=== PATIENT | female | born 1965 | race American Indian/Alaskan Native ===

== ENCOUNTER 2017-07-28 09:08 | Emergency (ER) | payer MEDICARE, MEDICAID ==
[2017-07-28 09:31] VITALS: PULSE 79; RESP 16; TEMP 98.1
[2017-07-28 09:57] VITALS: BP 122/70; O2SAT 98
--- NOTE | 2017-07-28 10:40 | ED PDOC ---
HPI: CCC, URI, Sore Throat Time Seen by Provider: 07/28/17 09:37 Chief Complaint (Nursing): Cough, Cold, Congestion Chief Complaint (Provider): Cough History Per: Patient Additional Complaint(s): Pt presents to ED with multiple somatic complaints; however, upon writers arrival, Pt reports she has a court date at noon and she needs to get there and has to leave the ER right now. Pt reports she will be back later Past Medical History Reviewed: Historical Data Vital Signs: Last Vital Signs Temp 98.1 F 07/28/17 09:48 Pulse 79 07/28/17 09:30 Resp 16 07/28/17 09:30 BP 122/70 07/28/17 09:48 Pulse Ox 98 07/28/17 09:48 - Medical History PMH: HTN, Hyperlipidemia, Schizophrenia Denies: HIV, Seizures, Sexually Transmitted Disease - Family History Family History: States: Unknown Family Hx - Immunization History Hx Tetanus Toxoid Vaccination: No Hx Influenza Vaccination: Yes (03/2017) Hx Pneumococcal Vaccination: No - Home Medications Home Medications: Ambulatory Orders Medication Instructions Recorded Paroxetine HCl [Paxil] 20 mg PO DAILY 08/27/15 Risperidone [Risperdal] 3 mg PO HS 08/27/15 Hydrocortisone Anastasiia 0.2% Cr 1 ea TP BID PRN #1 tube 06/17/17 [Westcort] Lisinopril 06/17/17 Pravastatin Sodium 06/17/17 metFORMIN [glucOPHAGE] 500 mg PO 06/17/17 - Allergies Allergies/Adverse Reactions: Allergies Allergy/AdvReac Type Severity Reaction Status Date / Time tomato Allergy Severe RASH Verified 06/17/17 16:28 amoxicillin AdvReac Severe PAIN Verified 06/17/17 16:28 Review of Systems Review Of Systems: ROS cannot be obtained secondary to pt's inabilty to answer questions. - ECG O2 Sat by Pulse Oximetry: 98 Medical Decision Making Medical Decision Making: Pt left before evaluation and treatment complete Disposition - Clinical Impression Clinical Impression: Viral syndrome - Disposition Disposition: Eloped Disposition Time: 10:43 Condition: STABLE
== END 2017-07-28 10:15 | disposition left against medical advice (07) ==
LOC: H.ER 09:08
DX: B34.9 Viral infection, unspecified (principal); E78.5 Hyperlipidemia, unspecified; F20.9 Schizophrenia, unspecified; I10 Essential (primary) hypertension; Z79.84 Long term (current) use of oral hypoglycemic drugs; Z88.0 Allergy status to penicillin

== ENCOUNTER 2017-07-28 14:29 | Emergency (ER) | payer MEDICARE, MEDICAID ==
[2017-07-28 14:44] VITALS: RESP 18
--- NOTE | 2017-07-28 15:27 | ED PDOC ---
HPI: General Adult Time Seen by Provider: 07/28/17 14:35 Chief Complaint (Nursing): Flu-like Symptoms Chief Complaint (Provider): multiple complainta History Per: Patient Additional Complaint(s): 52 yo female, multiple somatic complaints, pt c/o headache, bodyaches, cough and congestion for 2 days. Also reports bumps on scalp, vaginal discharge Past Medical History Reviewed: Historical Data, Nursing Documentation, Vital Signs Vital Signs: Last Vital Signs Temp 97.8 F 07/28/17 17:12 Pulse 75 07/28/17 17:12 Resp 18 07/28/17 17:12 BP 150/90 07/28/17 17:12 Pulse Ox 100 07/28/17 17:12 - Medical History PMH: HTN, Hyperlipidemia, Schizophrenia Denies: HIV, Seizures, Sexually Transmitted Disease - Family History Family History: States: Unknown Family Hx - Living Arrangements Living Arrangements: Other - Social History Current smoker - smoking cessation education provided: No Alcohol: None Drugs: Denies - Immunization History Hx Tetanus Toxoid Vaccination: No Hx Influenza Vaccination: Yes (03/2017) Hx Pneumococcal Vaccination: No - Home Medications Home Medications: Ambulatory Orders Medication Instructions Recorded Paroxetine HCl [Paxil] 20 mg PO DAILY 08/27/15 Risperidone [Risperdal] 3 mg PO HS 08/27/15 Hydrocortisone Anastasiia 0.2% Cr 1 ea TP BID PRN #1 tube 06/17/17 [Westcort] Lisinopril 06/17/17 Pravastatin Sodium 06/17/17 metFORMIN [glucOPHAGE] 500 mg PO 06/17/17 DiphenhydrAMINE [Benadryl] 50 mg PO Q4 PRN #30 cap 07/28/17 Hydrocortisone 1% Cream [Cortizone 1 dap TOP BID #1 tube 07/28/17 1% Cream] Ibuprofen [Motrin] 600 mg PO Q6 #20 tab 07/28/17 - Allergies Allergies/Adverse Reactions: Allergies Allergy/AdvReac Type Severity Reaction Status Date / Time tomato Allergy Severe RASH Verified 06/17/17 16:28 amoxicillin AdvReac Severe PAIN Verified 07/28/17 14:41 Review of Systems ROS Statement: Except As Marked, All Systems Reviewed And Found Negative Skin: Positive for: Lesions (on scalp) Neurological: Positive for: Headache Physical Exam - Reviewed Nursing Documentation Reviewed: Yes Vital Signs Reviewed: Yes - Physical Exam Appears: Positive for: Well, Non-toxic, No Acute Distress Head Exam: Positive for: ATRAUMATIC, NORMAL INSPECTION, NORMOCEPHALIC Skin: Positive for: Normal Color, Warm, DRY Eye Exam: Positive for: EOMI, Normal appearance, PERRL ENT: Positive for: Normal ENT Inspection Neck: Positive for: Normal, Painless ROM Cardiovascular/Chest: Positive for: Regular Rate, Rhythm Respiratory: Positive for: CNT, Normal Breath Sounds Gastrointestinal/Abdominal: Positive for: Normal Exam, Bowel Sounds, Soft Pelvic Exam: Positive for: External Exam Normal. Negative for: No Masses, Active Bleeding, Discharge, Lesions, Mass Back: Positive for: Normal Inspection Extremity: Positive for: Normal ROM Neurologic/Psych: Positive for: Alert, Oriented - Laboratory Results Result Diagrams: 07/28/17 16:14 07/28/17 16:14 - ECG O2 Sat by Pulse Oximetry: 97 Medical Decision Making Medical Decision Making: Pt educated on lab results and normal physical exam findings advised GC/C cultures obtianed and sent, will recieve call back if anything results (+) Pt deep shea unprotected sex in recent history, not treated at this time Disposition - Clinical Impression Clinical Impression: Viral syndrome - Patient ED Disposition Is Patient to be Admitted: No - Disposition Disposition: Routine/Home Disposition Time: 17:00 Condition: STABLE Prescriptions: DiphenhydrAMINE [Benadryl] 50 mg PO Q4 PRN #30 cap PRN Reason: Rash Hydrocortisone 1% Cream [Cortizone 1% Cream] 1 dap TOP BID #1 tube Ibuprofen [Motrin] 600 mg PO Q6 #20 tab Instructions: Viral Syndrome (DC) Forms: [employer] (Maltese)
[2017-07-28] MEDS ORDERED: Sodium Chloride 0.9% 1,000 ML IV STA (15:36)
--- NOTE | 2017-07-28 15:59 | RAD ---
HISTORY: cough COMPARISON: No prior. TECHNIQUE: Chest PA and lateral FINDINGS: LUNGS: No active pulmonary disease. PLEURA: No significant pleural effusion identified. No pneumothorax apparent. CARDIOVASCULAR: Normal. OSSEOUS STRUCTURES: No significant abnormalities. VISUALIZED UPPER ABDOMEN: Normal. OTHER FINDINGS: None. IMPRESSION: No active disease.
[2017-07-28 16:17] LABS: SQUAMOUS EPITHIAL 1 /hpf (0-5); URINE BACTERIA RARE (<OCC); URINE BILIRUBIN NEGATIVE (NEGATIVE); URINE BLOOD NEGATIVE (NEGATIVE); URINE CLARITY CLEAR (Clear); URINE COLOR YELLOW (YELLOW); URINE GLUCOSE (UA) >=500 mg/dL (Normal); URINE LEUKOCYTE ESTERASE NEG Leu/uL (Negative); URINE NITRATE NEGATIVE (NEGATIVE); URINE PROTEIN NEGATIVE (NEGATIVE); URINE UROBILINOGEN 0.2-1.0 mg/dL (0.2-1.0)
[2017-07-28 16:22] LABS: BASO % 0.5 % (0.0-2.0); EOS # 0.1 K/uL (0.0-0.7); EOS % 1.6 % (0.0-4.0); HEMOGLOBIN 12.5 g/dL (12.0-16.0); LYMPH # 1.9 K/uL (1.0-4.3); LYMPH % 36.3 % (20.0-40.0); MEAN CELL VOLUME 92.2 fl (81.0-99.0); MEAN CORPUSCULAR HEMOGLOBIN 30.6 pg (27.0-31.0); MEAN CORPUSCULAR HGB CONC 33.2 g/dL (33.0-37.0); MEAN PLATELET VOLUME 9.6 fl (7.2-11.7); MONO # 0.3 K/uL (0.0-0.8); MONO % 5.4 % (0.0-10.0); NEUT % 56.2 % (50.0-75.0); NRBC % 0.3 % (0.0-0.0); RBC 4.07 Mil/uL (3.80-5.20); WHITE BLOOD COUNT 5.3 K/uL (4.8-10.8)
[2017-07-28 16:34] LABS: ALB/GLOB RATIO 1.3 (1.0-2.1); ALBUMIN 3.7 g/dL (3.5-5.0); ALT/SGPT 32 U/L (9-52); AST/SGOT 19 U/L (14-36); BLOOD UREA NITROGEN 22 mg/dl (7-17); CALCIUM 9.1 mg/dL (8.4-10.2); GFR AFRICAN-AMERICAN > 60; GFR NON-AFRICAN AMERICAN > 60
[2017-07-28 17:13] VITALS: BP 150/90; PULSE 75; TEMP 97.8
[2017-07-30 11:32] VITALS: O2SAT 97
== END 2017-07-28 17:48 | disposition home or self-care (01) ==
LOC: H.ER 14:29
DX: B34.9 Viral infection, unspecified (principal); E78.5 Hyperlipidemia, unspecified; F20.9 Schizophrenia, unspecified; I10 Essential (primary) hypertension; N89.8 Other specified noninflammatory disorders of vagina; Z79.84 Long term (current) use of oral hypoglycemic drugs; Z88.0 Allergy status to penicillin
CPT/HCPCS: 71046; 80053; 81003; 81025; 85025; 86631; 86632; 99283; J7040

== ENCOUNTER 2017-12-27 11:32 | Emergency (ER) | payer MEDICARE, MEDICAID ==
[2017-12-27 11:33] VITALS: BMI 24.2
[2017-12-27 11:45] VITALS: RESP 16; TEMP 98.1
[2017-12-27 13:36] LABS: SQUAMOUS EPITHIAL < 1 /hpf (0-5); URINE BILIRUBIN NEGATIVE (NEGATIVE); URINE BLOOD NEGATIVE (NEGATIVE); URINE CLARITY CLEAR (Clear); URINE COLOR YELLOW (YELLOW); URINE GLUCOSE (UA) >=500 mg/dL (Normal); URINE LEUKOCYTE ESTERASE NEG Leu/uL (Negative); URINE PROTEIN 30 mg/dL (NEGATIVE); URINE UROBILINOGEN 0.2-1.0 mg/dL (0.2-1.0)
--- NOTE | 2017-12-27 13:36 | ED PDOC ---
HPI: Psych/Substance Abuse Time Seen by Provider: 12/27/17 12:01 Chief Complaint (Nursing): Abnormal Skin Integrity Chief Complaint (Provider): Pruritic Rash History Per: Patient History/Exam Limitations: no limitations Onset/Duration Of Symptoms: Other (several months) Current Symptoms Are (Timing): Still Present Additional Complaint(s): 52 y/o female with a PMHx of diabetes HTN, and schizophrenia presenting for evaluation of an intermittent pruritic rash to her entire body ongoing for several months. She reports a current rash to her right lower leg and states she s been taking Benadryl without any relief. 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 Patient is also complaining of constipation since Thursday associated with pelvic pain and urinary frequency without dysuria. She reports she was able to pass a stool yesterday, but had to strain. She denies any fever , throat swelling, nausea, vomiting, diarrhea, melena, hematochezia, or bright red blood per rectum. She denies any SI, HI, or hallucinations. PMD: Luan Garza Past Medical History Reviewed: Historical Data, Nursing Documentation, Vital Signs Vital Signs: Last Vital Signs Temp 98.1 F 12/27/17 11:41 Pulse 61 12/27/17 11:41 Resp 16 12/27/17 11:41 BP 150/91 H 12/27/17 11:41 Pulse Ox 100 12/27/17 11:41 - Medical History PMH: HTN, Hyperlipidemia, Schizophrenia Denies: HIV, Seizures, Sexually Transmitted Disease - Surgical History Other surgeries: Right ovarian cyst removal, hysterectomy - Family History Family History: States: Unknown Family Hx - Immunization History Hx Tetanus Toxoid Vaccination: No Hx Influenza Vaccination: Yes (03/2017) Hx Pneumococcal Vaccination: No - Home Medications Home Medications: Ambulatory Orders Medication Instructions Recorded Paroxetine HCl [Paxil] 20 mg PO DAILY 08/27/15 Risperidone [Risperdal] 3 mg PO HS 08/27/15 Fluconazole [Diflucan] 100 mg PO ONCE #3 tab 10/29/17 Miconazole 2% Vaginal [Monistat 7 1 applic VG HS #1 tube 10/29/17 Vaginal Cream] DiphenhydrAMINE [Benadryl] 25 mg PO QID #28 cap 12/14/17 Diphenhydramine HCl/Zinc Acet 28.3 gm TP TID #2 cream..g. 12/14/17 [Benadryl Itch Stopping Crm] predniSONE [Prednisone] 20 mg PO BID #10 tab 12/14/17 Hydrocortisone 1% Cream [Cortizone 1 applic TOP BID #1 tube 12/27/17 1% Cream] Polyethylene Glycol 3350 [Miralax] 17 gm PO DAILY PRN #30 each 12/27/17 - Allergies Allergies/Adverse Reactions: Allergies Allergy/AdvReac Type Severity Reaction Status Date / Time tomato Allergy Severe RASH Verified 11/08/17 12:12 amoxicillin AdvReac Severe PAIN Verified 11/08/17 12:12 acetaminophen [From Tylenol] AdvReac Verified 11/08/17 12:12 Review of Systems ROS Statement: Except As Marked, All Systems Reviewed And Found Negative Constitutional: Negative for: Fever ENT: Negative for: Throat Swelling Gastrointestinal: Positive for: Constipation. Negative for: Nausea, Vomiting, Diarrhea, Melena, Hematochezia Skin: Positive for: Rash (intermittent pruritic rash to full body, current rash to right lower leg) Psych: Negative for: Suicidal ideation (or homicidal ideations), Other ( hallucinations) Physical Exam - Reviewed Nursing Documentation Reviewed: Yes Vital Signs Reviewed: Yes - Physical Exam Appears: Positive for: Non-toxic, No Acute Distress Skin: Positive for: Rash (1 erythematous papule with no surrounding erythema to right calf, no central clearing or target shaped lesion) Eye Exam: Positive for: EOMI, Normal appearance, PERRL ENT: Positive for: Normal ENT Inspection Cardiovascular/Chest: Positive for: Regular Rate, Rhythm. Negative for: Murmur Respiratory: Positive for: Normal Breath Sounds. Negative for: Respiratory Distress Gastrointestinal/Abdominal: Positive for: Normal Exam, Soft. Negative for: Tenderness (no superpubic tenderness), Distended Back: Positive for: Normal Inspection. Negative for: L CVA Tenderness, R CVA Tenderness, Vertebral Tenderness Neurologic/Psych: Positive for: Alert, Oriented (x3), Mood/Affect (calm, cooperative, appropriate). Negative for: Motor/Sensory Deficits - Laboratory Results Result Diagrams: 12/27/17 13:05 12/27/17 14:05 - ECG O2 Sat by Pulse Oximetry: 100 (RA) Pulse Ox Interpretation: Normal - Progress ED Course And Treament: Obstructive x-ray: constipation; no obstruction Medical Decision Making Medical Decision Makin:27 Plan: -CMP -Lipase -Urine -CBC -X-ray obstructive series -IV insertion -Urinalysis -US transvaginal -Reevaluation 14:01 US TRANSVAGINAL FINDINGS: UTERUS: Status post hysterectomy ENDOMETRIUM: Status post hysterectomy CERVIX: Status post hysterectomy RIGHT OVARY: Measures 1.9 x 1.4 x 1.5 cm. No solid mass. Normal flow. LEFT OVARY: Measures 3.3 x 2.7 x 3.3 cm. No solid mass. Normal flow. Simple cyst, 2.0 x 2.4 x 2.7 cm, likely physiologic. However, as it is not known whether the patient is postmenopausal, in the absence of a uterus, followup is advised to exclude neoplasm. FREE FLUID: No significant free fluid noted. OTHER FINDINGS: None. IMPRESSION: 2.7 cm simple left ovarian cyst. Followup advised given uncertain nature of patient's menopausal status. Status post hysterectomy. Scribe Attestation: Documented by Haroon Ratliff, acting as a scribe for Ortiz Mccauley PA-C. Provider Scribe Attestation: All medical record entries made by the scribe were at my direction and personally dictated by me. I have reviewed the chart and agree that the record accurately reflects my personal performance of the history, physical exam, medical decision making, and the department course for this patient. I have also personally directed, reviewed, and agree with the discharge instructions and disposition. Disposition - Clinical Impression Clinical Impression: Constipation, Insect bite - Patient ED Disposition Is Patient to be Admitted: No - Disposition Referrals: [facility] [Outside] [facility] [Outside] Disposition: Routine/Home Disposition Time: 15:20 Condition: IMPROVED Additional Instructions: FARZANA TONY, thank you for letting us take care of you today. Your provider was Ciro Alford MD and you were treated for ABD PAIN BODY RASH. The emergency medical care you received today was directed at your acute symptoms. If you were prescribed any medication, please fill it and take as directed. It may take several days for your symptoms to resolve. Return to the Emergency Department if your symptoms worsen, do not improve, or if you have any other problems. Please contact your doctor or call one of the physicians/clinics you have been referred to that are listed on the Patient Visit Information form that is included in your discharge packet. Bring any paperwork you were given at discharge with you along with any medications you are taking to your follow up visit. Our treatment cannot replace ongoing medical care by a primary care provider outside of the emergency department. Thank you for allowing the [facility] team to be part of your care today. If you had an X-Ray or CT scan: A Radiologist will review the ED reading if any change in treatment is needed we will contact you. If you had a blood, urine, or wound culture: It will take several days for the results, if any change in treatment is needed we will contact you. If you had an STI test: It will take 48 hours for the results. Please call after 1 week if you have not heard back. Prescriptions: Hydrocortisone 1% Cream [Cortizone 1% Cream] 1 applic TOP BID #1 tube Polyethylene Glycol 3350 [Miralax] 17 gm PO DAILY PRN #30 each PRN Reason: Constipation Instructions: Constipation, Adult (DC), Insect Bites and Stings (DC) Forms: [facility] (Singaporean) Print Language: KAZAKH
--- NOTE | 2017-12-27 14:02 | US ---
Date of service: 12/27/2017 HISTORY: pelvic pain COMPARISON: None available. TECHNIQUE: FINDINGS: UTERUS: Status post hysterectomy ENDOMETRIUM: Status post hysterectomy CERVIX: Status post hysterectomy RIGHT OVARY: Measures 1.9 x 1.4 x 1.5 cm. No solid mass. Normal flow. LEFT OVARY: Measures 3.3 x 2.7 x 3.3 cm. No solid mass. Normal flow. Simple cyst, 2.0 x 2.4 x 2.7 cm, likely physiologic. However, as it is not known whether the patient is postmenopausal, in the absence of a uterus, followup is advised to exclude neoplasm. FREE FLUID: No significant free fluid noted. OTHER FINDINGS: None. IMPRESSION: 2.7 cm simple left ovarian cyst. Followup advised given uncertain nature of patient's menopausal status. Status post hysterectomy.
[2017-12-27] MEDS ORDERED: Sodium Chloride 0.9% 1,000 ML IV STA (14:06)
[2017-12-27] MEDS ORDERED: Insulin Regular 100 units/ml IVP STA (14:06)
[2017-12-27 14:17] LABS: BASO # 0.1 K/uL (0.0-0.2); BASO % 0.8 % (0.0-2.0); EOS # 0.1 K/uL (0.0-0.7); EOS % 1.4 % (0.0-4.0); HEMOGLOBIN 14.5 g/dL (12.0-16.0); LYMPH # 2.2 K/uL (1.0-4.3); MEAN CELL VOLUME 91.2 fl (81.0-99.0); MEAN CORPUSCULAR HEMOGLOBIN 30.4 pg (27.0-31.0); MEAN CORPUSCULAR HGB CONC 33.3 g/dL (33.0-37.0); MEAN PLATELET VOLUME 10.2 fl (7.2-11.7); MONO # 0.4 K/uL (0.0-0.8); MONO % 6.2 % (0.0-10.0); NEUT % 58.6 % (50.0-75.0); NRBC % 0.1 % (0.0-0.0); RBC 4.76 Mil/uL (3.80-5.20); RED CELL DISTRIBUTION WIDTH 14.5 % (11.5-14.5); WHITE BLOOD COUNT 6.8 K/uL (4.8-10.8)
[2017-12-27] MEDS ORDERED: Insulin Regular 100 units/ml ONE (14:20)
[2017-12-27 14:25] LABS: ALB/GLOB RATIO 1.5 (1.0-2.1); ALBUMIN 4.1 g/dL (3.5-5.0); CALCIUM 9.1 mg/dL (8.4-10.2); GFR AFRICAN-AMERICAN > 60; GFR NON-AFRICAN AMERICAN > 60; LIPASE 97 U/L (23-300)
[2017-12-27 14:29] LABS: ALT/SGPT 26 U/L (9-52); AST/SGOT 22 U/L (14-36); BLOOD UREA NITROGEN 12 mg/dl (7-17)
--- NOTE | 2017-12-27 15:04 | RAD ---
Date of service: 12/27/2017 PROCEDURE: Radiographs of the chest and abdomen (obstructive series) HISTORY: constipation COMPARISON: No prior. TECHNIQUE: AP radiograph of the chest, with upright and supine radiographs of the abdomen. FINDINGS: CHEST: Lungs: Clear. Cardiovascular: Normal size heart. No pulmonary vascular congestion. Pleura: No pleural fluid. No pneumothorax. Other findings: None. ABDOMEN AND PELVIS: Bowel: No evidence of bowel obstruction. Mild retained feces. Free air: None. Bones: Unremarkable. Other findings: None. IMPRESSION: No evidence of bowel obstruction. Mild retained feces. No pulmonary infiltrate.
[2017-12-27 15:19] LABS: BARBITURATES, UR NEGATIVE (NEGATIVE); BENZODIAZEPINES, UR NEGATIVE (NEGATIVE); OPIATES, UR NEGATIVE (NEGATIVE); PHENCYCLIDINE, UR NEGATIVE (NEGATIVE)
[2017-12-27 15:39] VITALS: BP 128/85; PULSE 75
[2017-12-27 23:01] VITALS: O2SAT 100
== END 2017-12-27 15:49 | disposition home or self-care (01) ==
LOC: H.ER 11:32
DX: S80.861A Insect bite (nonvenomous), right lower leg, initial encounter (principal); W57.XXXA Bitten or stung by nonvenomous insect and other nonvenomous arthropods, initial encounter; Y92.89 Other specified places as the place of occurrence of the external cause; K59.00 Constipation, unspecified; Z88.0 Allergy status to penicillin; E11.9 Type 2 diabetes mellitus without complications; E78.5 Hyperlipidemia, unspecified; I10 Essential (primary) hypertension; F20.9 Schizophrenia, unspecified
CPT/HCPCS: 74022; 76830; 80053; 81003; 81025; 82948; 83690; 85025; 96374; 99283; G0480; J7030

== ENCOUNTER 2018-03-11 21:39 | Emergency (ER) | payer MEDICARE, MEDICAID ==
[2018-03-11 21:39] VITALS: BMI 24.2
[2018-03-11 22:33] VITALS: O2SAT 100
[2018-03-12] MEDS ORDERED: Alum-Mag Hydrox-Simethicone Susp (30 mL) PO STA (01:25)
--- NOTE | 2018-03-12 01:28 | ED PDOC ---
HPI: Abdomen Time Seen by Provider: 03/12/18 00:51 Chief Complaint (Nursing): Abdominal Pain Chief Complaint (Provider): abdominal pain History Per: Patient History/Exam Limitations: no limitations Onset/Duration Of Symptoms: Hrs Current Symptoms Are (Timing): Still Present Location Of Pain/Discomfort: Epigastric Additional Complaint(s): 53 y/o female history of type II diabetes presents for evaluation of upper abdominal pain x 1 day. Patient states she was seen at [facility] today for same, and was given Insulin for elevated sugar but didn't enjoy her treatment there so she decided to come here. Patient denies fever, nausea/vomiting, chest pain, shortness of breath, palpitations, changes in bowel movements, urinary symptoms. Past Medical History Reviewed: Historical Data, Nursing Documentation, Vital Signs Vital Signs: Last Vital Signs Temp 98.2 F 03/11/18 22:29 Pulse 88 03/11/18 22:29 Resp 16 03/11/18 22:29 BP 167/99 H 03/11/18 22:29 Pulse Ox 100 03/11/18 22:29 - Medical History PMH: Diabetes, HTN, Hyperlipidemia, Schizophrenia Denies: HIV, Seizures, Sexually Transmitted Disease - Surgical History Other surgeries: hysterectomy - Family History Family History: States: Unknown Family Hx - Immunization History Hx Tetanus Toxoid Vaccination: No Hx Influenza Vaccination: No Hx Pneumococcal Vaccination: No - Home Medications Home Medications: Ambulatory Orders Medication Instructions Recorded Ibuprofen [Motrin] 400 mg PO TID PRN 03/11/18 - Allergies Allergies/Adverse Reactions: Allergies Allergy/AdvReac Type Severity Reaction Status Date / Time amoxicillin AdvReac Severe PAIN Verified 03/11/18 15:58 tomato AdvReac Severe RASH Verified 03/11/18 15:58 Review of Systems ROS Statement: Except As Marked, All Systems Reviewed And Found Negative Gastrointestinal: Positive for: Abdominal Pain Physical Exam - Reviewed Nursing Documentation Reviewed: Yes Vital Signs Reviewed: Yes - Physical Exam Appears: Positive for: Well, Non-toxic, No Acute Distress (sleeping) Head Exam: Positive for: ATRAUMATIC, NORMAL INSPECTION, NORMOCEPHALIC Skin: Positive for: Normal Color Eye Exam: Positive for: Normal appearance ENT: Positive for: Normal ENT Inspection Cardiovascular/Chest: Positive for: Regular Rate, Rhythm Respiratory: Positive for: Normal Breath Sounds Gastrointestinal/Abdominal: Positive for: Normal Exam, Bowel Sounds, Soft. Negative for: Tenderness Back: Positive for: Normal Inspection Extremity: Positive for: Normal ROM Neurologic/Psych: Positive for: Alert, Oriented (x3) - ECG O2 Sat by Pulse Oximetry: 100 - Progress ED Course And Treament: maalox, accucheck accucheck 206 Patient tolerating PO throughout ED visit; no vomiting or abdominal pain currently Patient requires no further in the ED and is stable for discharge at this time Advised follow up PMD within 2-3 days Return precautions given Disposition - Clinical Impression Clinical Impression: Hyperglycemia, Abdominal pain - Patient ED Disposition Is Patient to be Admitted: No Counseled Patient/Family Regarding: Studies Performed, Diagnosis, Need For Followup - Disposition Disposition: Routine/Home Disposition Time: 02:30 Condition: IMPROVED Instructions: Hyperglycemia, Adult, Stomach Ache and Stomach Upset
[2018-03-12] MEDS ORDERED: Alum-Mag Hydrox-Simethicone Susp (30 mL) ONE (02:23)
[2018-03-12 05:54] VITALS: BP 170/86; PULSE 66; RESP 18; TEMP 98.4
== END 2018-03-12 05:35 | disposition home or self-care (01) ==
LOC: H.ER 21:39
DX: R10.13 Epigastric pain (principal); E11.65 Type 2 diabetes mellitus with hyperglycemia; E78.5 Hyperlipidemia, unspecified; F20.9 Schizophrenia, unspecified; I10 Essential (primary) hypertension; Z88.0 Allergy status to penicillin

== ENCOUNTER 2018-09-13 19:36 | Emergency (ER) | payer MEDICARE, MEDICAID ==
[2018-09-13 19:36] VITALS: BMI 24.2
[2018-09-13 20:07] VITALS: BP 171/96; PULSE 70; RESP 16; TEMP 98.4; O2SAT 97
--- NOTE | 2018-09-13 21:45 | ED PDOC ---
HPI: Abdomen Time Seen by Provider: 09/13/18 21:07 Chief Complaint (Nursing): Groin Pain Chief Complaint (Provider): RIGHT groin pain History Per: Patient History/Exam Limitations: no limitations Onset/Duration Of Symptoms: Days (2), Gradual, Persistent Location Of Pain/Discomfort: Other (RIGHT groin) Quality Of Discomfort: Aching Associated Symptoms: Urinary Symptoms (mild dysuria). denies: Fever, Chills, Nausea, Vomiting, Diarrhea, Loss Of Appetite Exacerbating Factors: Movement Alleviating Factors: None Additional Complaint(s): May have started when she was lifting something heavy Past Medical History Reviewed: Historical Data, Nursing Documentation, Vital Signs Vital Signs: Last Vital Signs Temp 98.4 F 09/13/18 20:02 Pulse 70 09/13/18 20:02 Resp 16 09/13/18 20:02 BP 171/96 H 09/13/18 20:02 Pulse Ox 97 09/13/18 20:02 - Medical History PMH: Diabetes, HTN, Hyperlipidemia, Schizophrenia Denies: HIV, Seizures, Sexually Transmitted Disease - Surgical History Other surgeries: Hysterectomy - Family History Family History: States: Unknown Family Hx - Social History Current smoker - smoking cessation education provided: No - Immunization History Hx Tetanus Toxoid Vaccination: No Hx Influenza Vaccination: No Hx Pneumococcal Vaccination: No - Home Medications Home Medications: Ambulatory Orders Medication Instructions Recorded Ibuprofen [Motrin] 400 mg PO TID PRN 03/11/18 Dicyclomine [Bentyl] 20 mg PO QID PRN #20 tab 09/14/18 Ibuprofen [Motrin Tab] 600 mg PO Q8 PRN #60 tab 09/14/18 Polyethylene Glycol 3350 [Miralax] 17 gm PO DAILY PRN #1 bottle 09/14/18 - Allergies Allergies/Adverse Reactions: Allergies Allergy/AdvReac Type Severity Reaction Status Date / Time amoxicillin AdvReac Severe PAIN Verified 09/13/18 20:02 tomato AdvReac Severe RASH Verified 09/13/18 20:02 Review of Systems ROS Statement: Except As Marked, All Systems Reviewed And Found Negative (and as per HPI) Gastrointestinal: Positive for: Abdominal Pain. Negative for: Nausea, Vomiting, Diarrhea, Constipation, Melena Genitourinary Female: Positive for: Dysuria. Negative for: Frequency Physical Exam - Reviewed Nursing Documentation Reviewed: Yes Vital Signs Reviewed: Yes - Physical Exam Appears: Positive for: Non-toxic, No Acute Distress Head Exam: Positive for: ATRAUMATIC, NORMOCEPHALIC Skin: Positive for: Warm, Dry Eye Exam: Positive for: EOMI, PERRL ENT: Negative for: Pharyngeal Erythema, Tonsillar Exudate Neck: Positive for: Painless ROM, Supple Cardiovascular/Chest: Positive for: Regular Rate, Rhythm. Negative for: Murmur Respiratory: Positive for: Normal Breath Sounds. Negative for: Respiratory Distress Gastrointestinal/Abdominal: Positive for: Soft. Negative for: Tenderness Back: Positive for: Normal Inspection. Negative for: Decreased ROM Extremity: Positive for: Normal ROM. Negative for: Deformity Lymphatic: Negative for: Adenopathy Neurological/Psych: Positive for: Awake, Alert. Negative for: Motor/Sensory Deficits - Laboratory Results Result Diagrams: 09/13/18 23:24 09/13/18 23:24 Urine dip results: Positive for: Glucose. Negative for: Leukocyte Esterase - ECG O2 Sat by Pulse Oximetry: 97 Disposition - Clinical Impression Clinical Impression: Abdominal pain Counseled Patient/Family Regarding: Studies Performed, Diagnosis, Need For Followup, Rx Given - Disposition Disposition: Routine/Home Disposition Time: 00:03 Condition: STABLE Additional Instructions: PLEASE FOLLOWUP WITH YOUR LOG HAULER FOR YOUR COLONOSCOPY SCHEDULED. Prescriptions: Dicyclomine [Bentyl] 20 mg PO QID PRN #20 tab PRN Reason: abdominal pain Ibuprofen [Motrin Tab] 600 mg PO Q8 PRN #60 tab PRN Reason: Pain, Moderate (4-7) Polyethylene Glycol 3350 [Miralax] 17 gm PO DAILY PRN #1 bottle PRN Reason: Constipation Instructions: Constipation, Adult (DC), Groin Strain (DC), Hyperglycemia, Adult (DC)
[2018-09-13 23:35] LABS: BASO % 0.9 % (0.0-2.0); EOS # 0.2 K/uL (0.0-0.7); EOS % 2.7 % (0.0-4.0); LYMPH # 2.5 K/uL (1.0-4.3); LYMPH % 43.6 % (20.0-40.0); MEAN CELL VOLUME 90.6 fl (81.0-99.0); MEAN CORPUSCULAR HEMOGLOBIN 30.1 pg (27.0-31.0); MEAN CORPUSCULAR HGB CONC 33.2 g/dL (33.0-37.0); MEAN PLATELET VOLUME 9.2 fl (7.2-11.7); MONO # 0.3 K/uL (0.0-0.8); NEUT # 2.7 K/uL (1.8-7.0); NEUT % 47.8 % (50.0-75.0); NRBC % 0.1 % (0.0-0.0); RBC 4.06 Mil/uL (3.80-5.20); RED CELL DISTRIBUTION WIDTH 13.6 % (11.5-14.5); WHITE BLOOD COUNT 5.6 K/uL (4.8-10.8)
[2018-09-13 23:39] LABS: HEMOGLOBIN 12.2 g/dL (12.0-16.0)
[2018-09-13 23:40] LABS: ALB/GLOB RATIO 1.3 (1.0-2.1); ALBUMIN 3.6 g/dL (3.5-5.0); ALT/SGPT 34 U/L (9-52); AST/SGOT 22 U/L (14-36); BLOOD UREA NITROGEN 20 mg/dl (7-17); CALCIUM 9.2 mg/dL (8.4-10.2); GFR NON-AFRICAN AMERICAN > 60
[2018-09-13 23:56] LABS: BARBITURATES, UR NEGATIVE (NEGATIVE)
[2018-09-13 23:59] LABS: BENZODIAZEPINES, UR NEGATIVE (NEGATIVE); OPIATES, UR NEGATIVE (NEGATIVE); PHENCYCLIDINE, UR NEGATIVE (NEGATIVE)
--- NOTE | 2018-09-14 08:06 | RAD ---
Date of service: 09/13/2018 PROCEDURE: Radiographs of the chest and abdomen (obstructive series) HISTORY: abdominal pain COMPARISON: No prior. TECHNIQUE: AP radiograph of the chest, with upright and supine radiographs of the abdomen. 3 views obtained. FINDINGS: CHEST: Lungs: Clear. Cardiovascular: Normal size heart. No pulmonary vascular congestion. No aortic atherosclerotic calcification present Pleura: No pleural fluid. No pneumothorax. Other findings: None. ABDOMEN AND PELVIS: Bowel: Unremarkable bowel gas pattern. No evidence of mechanical obstruction. Free air: None. Bones: Unremarkable. Other findings: None. IMPRESSION: Unremarkable radiographs of chest and abdomen. No evidence of mechanical bowel obstruction.
== END 2018-09-14 00:15 | disposition home or self-care (01) ==
LOC: H.ER 19:36
DX: R10.9 Unspecified abdominal pain (principal); E11.9 Type 2 diabetes mellitus without complications; E78.5 Hyperlipidemia, unspecified; I10 Essential (primary) hypertension; Z88.0 Allergy status to penicillin
CPT/HCPCS: 74022; 80053; 81025; 85025; 99285; G0480

== ENCOUNTER 2018-10-14 19:11 | Emergency (ER) | payer MEDICARE, MEDICAID ==
[2018-10-14 19:11] VITALS: BMI 24.2
--- NOTE | 2018-10-14 21:27 | ED PDOC ---
HPI: Back Time Seen by Provider: 10/14/18 20:28 Chief Complaint (Nursing): Back Pain Chief Complaint (Provider): Back Pain History Per: Patient History/Exam Limitations: no limitations Onset/Duration Of Symptoms: Days Additional Complaint(s): 53 year old female with history of mental illness presents to ED with lower back pain radiating to back of both legs. Patient was originally seen at [facility] and given Ibuprofen and Macrobid without relief. She denies any urinary or bowel incontinence, urinary symptoms, numbness, tingling, weakness, any other injuries, previous back pain, or heavy lifting. PMD: Dr. Balderas at [facility] Past Medical History Reviewed: Historical Data, Nursing Documentation, Vital Signs Vital Signs: Last Vital Signs Temp 99.1 F 10/14/18 19:41 Pulse 82 10/14/18 19:41 Resp 18 10/14/18 19:41 BP 187/98 H 10/14/18 19:41 Pulse Ox 100 10/14/18 19:41 Primary Care Provider: Non [facility] Provider, - Medical History PMH: Diabetes, HTN, Hyperlipidemia, Schizophrenia Denies: HIV, Seizures, Sexually Transmitted Disease - Surgical History Surgical History: No Surg Hx - Family History Family History: States: Unknown Family Hx - Immunization History Hx Tetanus Toxoid Vaccination: No Hx Influenza Vaccination: No Hx Pneumococcal Vaccination: No - Home Medications Home Medications: Ambulatory Orders Medication Instructions Recorded Ibuprofen [Motrin] 400 mg PO TID PRN 03/11/18 Dicyclomine [Bentyl] 20 mg PO QID PRN #20 tab 09/14/18 Ibuprofen [Motrin Tab] 600 mg PO Q8 PRN #60 tab 09/14/18 Polyethylene Glycol 3350 [Miralax] 17 gm PO DAILY PRN #1 bottle 09/14/18 Cyclobenzaprine [Cyclobenzaprine 10 mg PO TID PRN #12 tab 10/14/18 HCl] Lidocaine 5% [Lidoderm] 1 patch TOP DAILY #10 patch 10/14/18 - Allergies Allergies/Adverse Reactions: Allergies Allergy/AdvReac Type Severity Reaction Status Date / Time amoxicillin AdvReac Severe PAIN Verified 10/14/18 19:41 tomato AdvReac Severe RASH Verified 10/14/18 19:41 acetaminophen [From Tylenol] AdvReac NAUSEA Verified 10/14/18 19:54 Review of Systems ROS Statement: Except As Marked, All Systems Reviewed And Found Negative Genitourinary Female: Negative for: Frequency, Incontinence Musculoskeletal: Positive for: Back Pain (lower back pain radiating to back of both legs) Neurological: Negative for: Weakness, Numbness, Other (no tingling) Physical Exam - Reviewed Nursing Documentation Reviewed: Yes Vital Signs Reviewed: Yes - Physical Exam Comments: GENERAL APPEARANCE: Patient is awake, alert, oriented x 3, in obvious moderate discomfort laying on stretcher. SKIN: Warm, dry; (-) cyanosis. EYES: (-) conjunctival pallor. ENMT: Mucous membranes moist. NECK: (-) tenderness, (-) stiffness, (-) lymphadenopathy. CHEST AND RESPIRATORY: (-) rales, (-) rhonchi, (-) wheezes; breath sounds equal bilaterally. HEART AND CARDIOVASCULAR: (-) irregularity; (-) murmur, (-) gallop. ABDOMEN AND GI: Soft; (-) tenderness; (-) palpable mass. BACK: (+) midline tenderness L4 to S1, (+) bilateral muscle tenderness, (+) mild spasm, (-) direct bony tenderness, (-) deformity. Straight leg raising (-) bilaterally. EXTREMITIES: (-) deformity. Distal pulses good bilaterally. NEURO AND PSYCH: Mental status as above. Strength: 5/5 x4 cranial nerves 2-12 intact. Intact sensation bilaterally; normal strength in extension of the knees, plantar and dorsiflexion of the toes. DTRs symmetric. - ECG O2 Sat by Pulse Oximetry: 100 (RA) Pulse Ox Interpretation: Normal Medical Decision Making Medical Decision Making: Time: 2099 Initial Plan: --Xray --Urinalysis --Flexeril --Toradol --Lidocaine 2144 Lumbar Spine Xray BILLIE reviewed results and determined there are no fractures, no dislocations, mild DJD, some stool and bowel movements 22:34 on re eval pt is sleeping, easily arousable, moving well with no pain, ambulating with a steady gait, pt is neurologically intact Discussed results, diagnosis, treatment, return precautions and f/u with pt who is understanding, in agreement and stable for dc Scribe Attestation: Documented by Bruce Fajardo acting as a scribe for David Seay PA-C. Provider Scribe Attestation: All medical record entries made by the Scribe were at my direction and personally dictated by me. I have reviewed the chart and agree that the record accurately reflects my personal performance of the history, physical exam, medical decision making, and the department course for this patient. I have also personally directed, reviewed, and agree with the discharge instructions and disposition. Disposition - Clinical Impression Clinical Impression: Low back pain - Patient ED Disposition Is Patient to be Admitted: No Counseled Patient/Family Regarding: Studies Performed, Diagnosis, Need For Followup, Rx Given - Disposition Referrals: your, doctor [Other] Disposition: Routine/Home Disposition Time: 22:36 Condition: IMPROVED Additional Instructions: Thank you for letting us take care of you today. The emergency medical care you received today was directed at your acute symptoms. If you were prescribed any medication, please fill it and take as directed. Do not drive or drink alcohol when taking flexeril. It may take several days for your symptoms to resolve. Return to the Emergency Department if your symptoms worsen, do not improve, or if you have any other problems. Please contact your doctor in 2 days for re-evaluation and follow up / or call one of the physicians/clinics you have been referred to that are listed on the Patient Visit Information form that is included in your discharge packet. Bring any paperwork you were given at discharge with you along with any medications you are taking to your follow up visit. Our treatment cannot replace ongoing medical care by a primary care provider (PCP) outside of the emergency department. Prescriptions: Cyclobenzaprine [Cyclobenzaprine HCl] 10 mg PO TID PRN #12 tab PRN Reason: muscle pain Lidocaine 5% [Lidoderm] 1 patch TOP DAILY #10 patch Instructions: Low Back Pain in Adults Forms: [employer] (Kazakh) Print Language: IRISH - POA Present On Arrival: None
[2018-10-14] MEDS: Lidocaine 5% Patch TD STA (21:28)
[2018-10-14] MEDS ORDERED: Lidocaine 5% Patch TD ONE (21:28)
[2018-10-14 22:00] LABS: SQUAMOUS EPITHIAL 1 /hpf (0-5); URINE BILIRUBIN NEGATIVE (NEGATIVE); URINE BLOOD NEGATIVE (NEGATIVE); URINE CLARITY CLEAR (Clear); URINE COLOR STRAW (YELLOW); URINE GLUCOSE (UA) 50 mg/dL (NEGATIVE); URINE LEUKOCYTE ESTERASE NEG Leu/uL (Negative); URINE PROTEIN NEGATIVE (NEGATIVE); URINE UROBILINOGEN 0.2-1.0 mg/dL (0.2-1.0)
[2018-10-14 22:49] VITALS: BP 150/87; PULSE 87; RESP 19; TEMP 98.3; O2SAT 97
--- NOTE | 2018-10-15 09:14 | RAD ---
Date of service: 10/14/2018 PROCEDURE: Radiographs of the Lumbar Spine. HISTORY: midline pain COMPARISON: No prior. TECHNIQUE: 5 views obtained. FINDINGS: BONES: Normal alignment. No listhesis. No fracture. DISC SPACES: Minimal spondylosis identified at L3-4 and L4-5 levels anteriorly as well as L5-S1. Intervertebral disc spaces are otherwise unremarkable diffusely. OTHER FINDINGS: Surgical clip incidentally noted at the left hemipelvis soft tissues. IMPRESSION: Minimal mid to inferior lumbar spondylosis without fracture or spondylolisthesis appreciable. Examination otherwise unremarkable.
== END 2018-10-14 22:48 | disposition home or self-care (01) ==
LOC: H.ER 19:11
DX: M54.5 Low back pain (principal)
CPT/HCPCS: 72100; 81003; 81025; 96372; 99283; J1885